=== PATIENT | female | born 1990 | race American Indian/Alaskan Native ===

== ENCOUNTER 2021-05-02 15:11 | Emergency (ER) | payer MEDICAID, OTHER ==
--- NOTE | 2021-05-02 16:08 | Event Note ---
ED Screening Note ED Screening Note: Patient states that she has chest pain, shortness of breath, pain with taking a deep breath that began today she has a history of bilateral PE diagnosed 3 years ago and reports that she has been out of her Xarelto for 2 weeks Denies any leg swelling or calf pain This initial assessment/diagnostic orders/clinical plan/treatment(s) is/are subject to change based on patients health status, clinical progression and re- assessment by fellow clinical providers in the ED. Further treatment and workup at subsequent clinical providers discretion. Patient/guardian urged not to elope from the ED as their condition may be serious if not clinically assessed and managed. Initial orders include: Labs, EKG, x-ray, CT, monitor and storage bin tender
[2021-05-02 17:20] VITALS: BP 109/57
[2021-05-02 17:31] LABS: Basophils # (Auto) 0.1 K/mm3 (0.0-0.1); Basophils % (Auto) 1.2 % (0.0-1.8); Eosinophils # (Auto) 0.2 K/mm3 (0.0-0.4); Eosinophils % (Auto) 2.3 % (0.0-4.3); Hematocrit 41.4 % (30.3-42.9); Hemoglobin 14.2 gm/dl (10.1-14.3); Lymphocytes # (Auto) 2.3 K/mm3 (1.2-5.4); Lymphocytes % (Auto) 29.5 % (13.4-35.0); Mean Corpuscular HGB Conc 34 % (30-34); Mean Corpuscular Volume 97 fl (79-97); Monocytes # (Auto) 0.5 K/mm3 (0.0-0.8); Monocytes % (Auto) 6.6 % (0.0-7.3); Platelet Count 264 K/mm3 (140-440); Red Blood Count 4.26 M/mm3 (3.65-5.03); Red Cell Distribution Width 13.3 % (13.2-15.2)
[2021-05-02 17:35] LABS: Alanine Aminotransferase 16 units/L (7-56); Albumin 4.2 g/dL (3.9-5); Blood Urea Nitrogen 8 mg/dL (7-17); Calcium 9.5 mg/dL (8.4-10.2); Hemolysis Index 4
[2021-05-02 17:39] LABS: BUN/Creatinine Ratio 11
[2021-05-02] MEDS ORDERED: ALBUTEROL 2.5 MG/3 ML NEBU IH ONE (20:55)
--- NOTE | 2021-05-02 21:25 | XRay Report ---
CHEST 2 VIEWS INDICATION / CLINICAL INFORMATION: sob, cp. COMPARISON: None available. FINDINGS: SUPPORT DEVICES: None. HEART / MEDIASTINUM: No significant abnormality. LUNGS / PLEURA: No significant pulmonary or pleural abnormality. No pneumothorax. ADDITIONAL FINDINGS: No significant additional findings. IMPRESSION: 1. No acute findings. Signer Name: Jose Paez DO Signed: 05/02/2021 9:20 PM Workstation Name: [id number]
--- NOTE | 2021-05-02 22:50 | Emergency Department Report ---
ED General Adult HPI - General Chief complaint: Chest Pain Stated complaint: CP/HEADACHES Time Seen by Provider: 05/02/21 16:06 Source: patient Mode of arrival: Ambulatory Limitations: No Limitations - Related Data Previous Rx's Medication Instructions Recorded Last Taken Type Albuterol Mdi (or & Nicu Only) 2 puff IH QID PRN #1 inhalation 05/02/21 Unknown Rx [ProAir HFA Inhaler] Benzonatate [Tessalon Perles] 100 mg PO Q8HR #20 capsule 05/02/21 Unknown Rx Rivaroxaban [Xarelto Starter Pack] 1 each PO DAILY #30 tab.ds.pk 05/02/21 Unkn own Rx predniSONE [Deltasone] 20 mg PO QDAY #5 tab 05/02/21 Unknown Rx Allergies Allergy/AdvReac Type Severity Reaction Status Date / Time No Known Allergies Allergy Unverified 05/02/21 15:56 ED Review of Systems ROS: Stated complaint: CP/HEADACHES Other details as noted in HPI Comment: All other systems reviewed and negative ED Past Medical Hx - Past Medical History Additional medical history: BLOOD CLOT - Surgical History Additional Surgical History: C SECTION X2 - Medications Home Medications: Home Medications Medication Instructions Recorded Confirmed Last Taken Type Albuterol Mdi (or & Nicu Only) 2 puff IH QID PRN #1 inhalation 05/02/21 Unknown Rx [ProAir HFA Inhaler] Benzonatate [Tessalon Perles] 100 mg PO Q8HR #20 capsule 05/02/21 Unknown Rx Rivaroxaban [Xarelto Starter Pack] 1 each PO DAILY #30 tab.ds.pk 05/02/21 Unknown Rx predniSONE [Deltasone] 20 mg PO QDAY #5 tab 05/02/21 Unknown Rx ED Physical Exam - General Limitations: No Limitations General appearance: alert, in no apparent distress - Head Head exam: Present: atraumatic, normocephalic - Eye Eye exam: Present: normal appearance, PERRL, EOMI Pupils: Present: normal accommodation - ENT ENT exam: Present: mucous membranes moist - Neck Neck exam: Present: normal inspection - Respiratory Respiratory exam: Present: normal lung sounds bilaterally. Absent: respiratory distress - Cardiovascular Cardiovascular Exam: Present: regular rate, normal rhythm. Absent: systolic murmur, diastolic murmur, rubs, gallop - GI/Abdominal GI/Abdominal exam: Present: soft, normal bowel sounds - Extremities Exam Extremities exam: Present: normal inspection - Back Exam Back exam: Present: normal inspection - Neurological Exam Neurological exam: Present: alert, oriented X3 - Psychiatric Psychiatric exam: Present: normal affect, normal mood - Skin Skin exam: Present: warm, dry, intact, normal color. Absent: rash ED Course Vital Signs 05/02/21 05/02/21 05/02/21 15:57 16:00 17:19 Temperature 99.2 F Pulse Rate 100 H 86 Respiratory 20 32 H Rate Blood Pressure 109/57 Blood Pressure 103/56 [Right] O2 Sat by Pulse 99 97 Oximetry ED Medical Decision Making - Lab Data Result diagrams: 05/02/21 16:36 05/02/21 16:36 Critical care attestation.: If time is entered above; I have spent that time in minutes in the direct care of this critically ill patient, excluding procedure time. ED Disposition Clinical Impression: Cough, Chest pain in adult Disposition: 01 HOME / SELF CARE / HOMELESS Is pt being admited?: No Does the pt Need Aspirin: No Condition: Stable Instructions: Cough, Adult, Nonspecific Chest Pain, Adult, Nonspecific Chest Pain, Adult, [id number] Additional Instructions: Please be sure to follow with your primary care provider for for further prescriptions of of Xarelto being etiologies relocated this area from [place] starter pack has been provided. Chest x-ray was of normal variant and your D- dimer did not support any evidence of any blood clots return to emergency department should you feel your condition is worsening. You have been evaluated emergency department today for your cough and chest pain with some shortness of breath at the present time no urgent or even emergent condition was discovered. Please take the medication you have been provided to help alleviate your symptoms and follow-up in the emergency department should you begin to to to develop worsening chest pain, syncope, severe shortness of breath or any suggestion that your condition is worsening Prescriptions: predniSONE [Deltasone] 20 mg PO QDAY #5 tab Albuterol Mdi (or & Nicu Only) [ProAir HFA Inhaler] 2 puff IH QID PRN #1 inhalation PRN Reason: Shortness Of Breath Benzonatate [Tessalon Perles] 100 mg PO Q8HR #20 capsule Rivaroxaban [Xarelto Starter Pack] 1 each PO DAILY #30 tab.ds.pk Referrals: [facility] [Provider Group] - 3-5 Days
--- NOTE | 2021-05-03 10:05 | Electrocardiograph Report ---
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
== END 2021-05-02 23:50 | disposition home or self-care (01) ==
LOC: ED 15:11
DX: R07.89 Other chest pain (principal); R05 Cough; Z98.890 Other specified postprocedural states; Z79.899 Other long term (current) drug therapy
CPT/HCPCS: 36415; 71046; 80053; 83880; 84484; 84703; 85025; 85379; 93005; 94640; 99284